=== PATIENT | male | born 1945 | race Caucasian/White ===

== ENCOUNTER 2017-03-05 06:53 | Outpatient (CLI) | payer MEDICARE, BC | END 2017-03-05 06:54 | disposition home or self-care (01) | LOC: NAV LAB 06:53 | PROVIDERS: ATTEND Internal Medicine Nephrology | DX: N18.3 Chronic kidney disease, stage 3 (moderate) (principal) | CPT/HCPCS: 36415; 82565 ==

== ENCOUNTER 2025-07-02 14:54 | Emergency (ER) | payer BC, MEDICARE ==
[2025-07-02] MEDS ORDERED: Boostrix 0.5 ML (Tdap) VIAL (>/=7 yrs of age) ONE (15:38)
[2025-07-02] MEDS ORDERED: Bacitracin Zinc Ointment 30 gm TUBE ONE (15:55)
== END 2025-07-02 16:42 | disposition home or self-care (01) ==
LOC: NAV ERS 14:54
DX: S80.811A Abrasion, right lower leg, initial encounter (principal); E11.9 Type 2 diabetes mellitus without complications; Z23 Encounter for immunization; Z79.82 Long term (current) use of aspirin; W20.8XXA Other cause of strike by thrown, projected or falling object, initial encounter
CPT/HCPCS: 90471; 90715